=== PATIENT | female | born 1950 | race Caucasian/White ===

== ENCOUNTER 2018-11-06 14:40 | Emergency (ER) | payer OTHER ==
[~2018-11-06] VITALS: Ht 167.6 cm; Wt 72.1 kg
[~2018-11-06 14:40] MED LIST: ACYC400 PO; ACYC5TO15G TOP; ACYC800 PO; AMIT25 PO; AMLO10 PO; AMLO5 PO; ASPI81CH; ASPI81EC; Augmentin 875-1 EACH PO; Azor 10-20 MG1 EACH PO; CALCA500CH PO; CHOL10002; CHOL10002 PO; CONEST.3; CRUTCH2 USE; CYCL10 PO; FISH1000 PO; GABA100 PO; IBUP400 PO; MEDR2.5; MELO7.5 PO; METO25ER PO; NAPR375 PO; Neurontin300 MG PO; Norco 5-325 Ta1 EACH PO; OXYACE5T PO; OXYACE7.5T PO; PARO30 PO; Percocet 10-321 EACH PO; Percocet 5-3251 EACH PO; RXOXYACE PO; TRAM50; TRAM50 PO; VIT1CAPS12; Voltaren100 GM TP
[2018-11-06] MEDS ORDERED: Voltaren100 GM TOP (15:18)
[2018-11-06] MEDS ORDERED: IBUP800 PO (16:04)
== END 2018-11-06 15:37 | disposition home or self-care (01) ==
LOC: ER 14:40
DX: M25.471 Effusion, right ankle (principal); Z88.2 Allergy status to sulfonamides; Z88.1 Allergy status to other antibiotic agents; Z79.899 Other long term (current) drug therapy; I10 Essential (primary) hypertension; F41.9 Anxiety disorder, unspecified; Z87.891 Personal history of nicotine dependence
CPT/HCPCS: 29515; 73610; 99283-25; L1906

== ENCOUNTER 2019-01-12 18:43 | Emergency (ER) | payer OTHER ==
[~2019-01-12] VITALS: Ht 167.6 cm; Wt 68.0 kg
[~2019-01-12 18:43] MED LIST changes: +IBUP800 PO; +Voltaren100 GM TOP
[2019-01-12] MEDS ORDERED: AMIT50 PO (19:43)
[2019-01-12] MEDS ORDERED: PARO30 PO (19:43)
[2019-01-12] MEDS ORDERED: Norvasc10 MG PO (19:43)
== END 2019-01-12 20:30 | disposition home or self-care (01) ==
LOC: ER 18:43
DX: I10 Essential (primary) hypertension (principal); F41.9 Anxiety disorder, unspecified; F17.200 Nicotine dependence, unspecified, uncomplicated
CPT/HCPCS: 99283

== ENCOUNTER 2019-02-21 11:01 | Emergency (ER) | payer OTHER ==
[~2019-02-21] VITALS: Ht 167.6 cm; Wt 68.0 kg
[~2019-02-21 11:01] MED LIST changes: +AMIT50 PO; +Norvasc10 MG PO
[2019-02-21 12:52] LABS: BASOPHILS ABSOLUTE AUTO 0.05 K/mm3 (0.00-0.23); BASOPHILS PERCENT AUTO 1 % (0-2); EOSINOPHILS ABSOLUTE AUTO 0.11 K/mm3 (0.00-0.68); EOSINOPHILS PERCENT AUTO 1 % (0-6); Hematocrit 41.8 % (33.0-51.0); Hemoglobin 13.9 g/dL (11.5-16.0); IMMATURE GRAN ABSOLUTE AUTO 0.03 K/mm3 (0.00-0.10); IMMATURE GRAN PERCENT AUTO 0 % (0-1); LYMPHOCYTES ABSOLUTE AUTO 1.83 K/mm3 (0.84-5.20); LYMPHOCYTES PERCENT AUTO 17 % (21-46); MONOCYTES ABSOLUTE AUTO 0.83 K/mm3 (0.16-1.47); MONOCYTES PERCENT AUTO 8 % (4-13); Mean Corpuscular HGB 32.1 pg (26.0-34.0); Mean Corpuscular HGB Conc 33.3 g/dL (31.5-36.5); Mean Corpuscular Volume 97 fL (80-100); Mean Platelet Volume 9.5 fL (9.1-12.4); NEUTROPHILS ABSOLUTE AUTO 7.74 K/mm3 (1.96-9.15); NEUTROPHILS PERCENT AUTO 73 % (41-73); Platelet Count 257 K/mm3 (150-400); RDW Coefficient Variation 13.9 % (11.7-14.2); RDW Standard Deviation 49.5 fL (35.1-46.3); Red Blood Cell Count 4.33 M/mm3 (3.80-5.20); White Blood Cell Count 10.59 K/mm3 (4.00-11.30)
[2019-02-21 13:12] LABS: Alanine Aminotransfer (ALT/SGP 27 U/L (12-78); Albumin, Blood 3.9 g/dL (3.4-5.0); Albumin/Globulin Ratio 1.1 (0.8-1.8); Alk Phos 92 U/L (50-136); Anion Gap 6 mmol/L (6-16); Aspartate Aminotrans (AST/SGOT 30 U/L (12-37); Bilirubin, Total 1.1 mg/dL (0.1-1.0); Blood Urea Nitrogen 10 mg/dL (8-24); Bun/Creatinine Ratio 15.2 (12.0-20.0); CO2, Blood 29 mmol/L (21-32); Calcium, Blood 9.1 mg/dL (8.5-10.1); Chloride, Blood 100 mmol/L (98-108); Creatinine, Blood 0.66 mg/dL (0.40-1.00); Globulin, Blood 3.5 g/dL (2.2-4.0); Glomerular Filtration Rate >60 (60-); Glucose, Blood 94 mg/dL (70-99); Potassium, Blood 4.1 mmol/L (3.5-5.5); Sodium, Blood 135 mmol/L (136-145); Total Protein, Blood 7.4 g/dL (6.4-8.2)
[2019-02-21] MEDS ORDERED: ONDA4ODT MM (13:43)
== END 2019-02-21 16:25 | disposition home or self-care (01) ==
LOC: ER 11:01
PROVIDERS: Emergency Medicine
DX: S09.90XA Unspecified injury of head, initial encounter (principal); F41.9 Anxiety disorder, unspecified; I10 Essential (primary) hypertension; D69.3 Immune thrombocytopenic purpura; Z88.2 Allergy status to sulfonamides; Z88.8 Allergy status to other drugs, medicaments and biological substances; Z79.899 Other long term (current) drug therapy; Z59.0 Homelessness; W01.10XA Fall on same level from slipping, tripping and stumbling with subsequent striking against unspecified object, initial encounter
CPT/HCPCS: 36415; 70450; 80053; 85025; 99284-25

== ENCOUNTER 2020-06-02 21:35 | Inpatient (IN) | payer OTHER ==
[~2020-06-02] VITALS: Ht 167.6 cm; Wt 68.0 kg
[~2020-06-02 21:35] MED LIST changes: +ONDA4ODT MM
[2020-06-03 01:36] LABS: BASOPHILS PERCENT AUTO 1 % (0-2); EOSINOPHILS ABSOLUTE AUTO 0.25 K/mm3 (0.00-0.68); EOSINOPHILS PERCENT AUTO 2 % (0-6); Hematocrit 34.3 % (33.0-51.0); Hemoglobin 11.4 g/dL (11.5-16.0); IMMATURE GRAN ABSOLUTE AUTO 0.07 K/mm3 (0.00-0.10); IMMATURE GRAN PERCENT AUTO 1 % (0-1); LYMPHOCYTES ABSOLUTE AUTO 3.35 K/mm3 (0.84-5.20); LYMPHOCYTES PERCENT AUTO 26 % (21-46); MONOCYTES ABSOLUTE AUTO 1.02 K/mm3 (0.16-1.47); MONOCYTES PERCENT AUTO 8 % (4-13); Mean Corpuscular HGB 33.4 pg (26.0-34.0); Mean Corpuscular HGB Conc 33.2 g/dL (31.5-36.5); Mean Corpuscular Volume 101 fL (80-100); Mean Platelet Volume 9.7 fL (9.1-12.4); NEUTROPHILS ABSOLUTE AUTO 8.18 K/mm3 (1.96-9.15); NEUTROPHILS PERCENT AUTO 63 % (41-73); Platelet Count 292 K/mm3 (150-400); RDW Coefficient Variation 13.2 % (11.7-14.2); RDW Standard Deviation 49.5 fL (35.1-46.3); Red Blood Cell Count 3.41 M/mm3 (3.80-5.20); White Blood Cell Count 12.97 K/mm3 (4.00-11.30)
[2020-06-03 01:54] LABS: Alanine Aminotransfer (ALT/SGP 39 U/L (12-78); Albumin, Blood 3.4 g/dL (3.4-5.0); Albumin/Globulin Ratio 0.9 (0.8-1.8); Alk Phos 126 U/L (50-136); Anion Gap 10 mmol/L (6-16); Aspartate Aminotrans (AST/SGOT 40 U/L (12-37); Bilirubin, Total 0.2 mg/dL (0.1-1.0); Blood Urea Nitrogen 10 mg/dL (8-24); Bun/Creatinine Ratio 13.7 (12.0-20.0); CO2, Blood 22 mmol/L (21-32); Chloride, Blood 107 mmol/L (98-108); Creatinine, Blood 0.73 mg/dL (0.40-1.00); Globulin, Blood 3.6 g/dL (2.2-4.0); Glomerular Filtration Rate >60 (60-); Glucose, Blood 88 mg/dL (70-99); Potassium, Blood 4.4 mmol/L (3.5-5.5); Sodium, Blood 139 mmol/L (136-145)
--- NOTE | 2020-06-03 03:59 | NUR ---
PT DECLINED TO ANSWER QUESTIONS RELATING TO HER HEALTH HISTORY AT THIS TIME, STATING THAT SHE WAS TOO TIRED AND FELT THAT SHE WOULD NOT ANSWER CORRECTLY. PT LYING IN BED WITH CALL LIGHT IN REACH. EDUCATED ON USE OF CALL LIGHT, PT DEMONSTRATED ACCURATELY.
[2020-06-03 05:25] LABS: BASOPHILS ABSOLUTE AUTO 0.08 K/mm3 (0.00-0.23); BASOPHILS PERCENT AUTO 1 % (0-2); EOSINOPHILS PERCENT AUTO 3 % (0-6); Hematocrit 34.8 % (33.0-51.0); Hemoglobin 11.3 g/dL (11.5-16.0); IMMATURE GRAN ABSOLUTE AUTO 0.06 K/mm3 (0.00-0.10); IMMATURE GRAN PERCENT AUTO 1 % (0-1); LYMPHOCYTES ABSOLUTE AUTO 3.57 K/mm3 (0.84-5.20); LYMPHOCYTES PERCENT AUTO 30 % (21-46); MONOCYTES ABSOLUTE AUTO 1.31 K/mm3 (0.16-1.47); MONOCYTES PERCENT AUTO 11 % (4-13); Mean Corpuscular HGB 32.7 pg (26.0-34.0); Mean Corpuscular HGB Conc 32.5 g/dL (31.5-36.5); Mean Corpuscular Volume 101 fL (80-100); Mean Platelet Volume 10.1 fL (9.1-12.4); NEUTROPHILS ABSOLUTE AUTO 6.69 K/mm3 (1.96-9.15); NEUTROPHILS PERCENT AUTO 56 % (41-73); Platelet Count 292 K/mm3 (150-400); RDW Coefficient Variation 13.3 % (11.7-14.2); RDW Standard Deviation 50.2 fL (35.1-46.3); Red Blood Cell Count 3.46 M/mm3 (3.80-5.20); White Blood Cell Count 12.01 K/mm3 (4.00-11.30)
[2020-06-03 05:43] LABS: Alanine Aminotransfer (ALT/SGP 38 U/L (12-78); Albumin, Blood 3.3 g/dL (3.4-5.0); Albumin/Globulin Ratio 0.9 (0.8-1.8); Alk Phos 127 U/L (50-136); Anion Gap 9 mmol/L (6-16); Aspartate Aminotrans (AST/SGOT 40 U/L (12-37); Bilirubin, Total 0.5 mg/dL (0.1-1.0); Blood Urea Nitrogen 10 mg/dL (8-24); Bun/Creatinine Ratio 16.2 (12.0-20.0); CO2, Blood 22 mmol/L (21-32); Calcium, Blood 7.9 mg/dL (8.5-10.1); Chloride, Blood 106 mmol/L (98-108); Creatinine, Blood 0.62 mg/dL (0.40-1.00); Globulin, Blood 3.5 g/dL (2.2-4.0); Glomerular Filtration Rate >60 (60-); Glucose, Blood 82 mg/dL (70-99); Potassium, Blood 4.2 mmol/L (3.5-5.5); Sodium, Blood 137 mmol/L (136-145); Total Protein, Blood 6.8 g/dL (6.4-8.2)
--- NOTE | 2020-06-03 05:57 | NUR ---
SHIFT SUMMARY: OREN AROUSES EASILY AND RESPONDS APPROPRIATELY. SHE HAS RESTED INTERMITTENTLY SINCE ADMISSION. VSS, NO ACUTE EVENTS. SHE USES HER CALL LIGHT APPROPRIATELY. IV TO LEFT HAND PATENT, NS INFUSING. SHE DISPLAYS BEHAVIORS CONSISTENT WITH INEBRIATION. CAP REFILL TO LLE <3 SECONDS. SPLINT C/D&I. SHE IS A ONE PERSON ASSIST TO THE BEDSIDE COMMODE, REPOSITIONS HERSELF WELL IN BED. SHE IS LYING IN BED WITH HER CALL LIGHT IN REACH. WILL REPORT TO DAY SHIFT RN.
[2020-06-03 08:57] LABS: Source, Urine Catheter
[2020-06-03 09:03] LABS: Bilirubin, Urine Neg (Neg); Blood, Urine Neg (Neg); Glucose Qualitative, Urine Neg (Neg); Ketones, Urine Neg (Neg); Leukocyte Esterase, Urine 2+ (Neg); Nitrite, Urine Neg (Neg); Protein, Urine Neg (Neg); Specific Gravity, Urine 1.015 (1.003-1.022); Urobilinogen, Urine NORM (Normal)
[2020-06-03 09:14] LABS: Appearance, Urine Hazy (Clear); Color, Urine Yellow (P-Yellow)
[2020-06-03 09:16] LABS: Bacteria Rare /hpf; Red Blood Cells, Urine Not Seen /hpf (0-2); Squamous Epithelial Cells Rare /hpf (Few)
--- NOTE | 2020-06-03 09:43 | NUR ---
PT TO OR AT APROX 0940.
--- NOTE | 2020-06-03 10:29 | NUR ---
"DAY SURGERY RN | REPORT OFF TO PEDRO CODY PATIENT TALKING TO THIS RN IN FULL SENTENCES. PAIN IS TOLERABLE RIGHT NOW. AWAITING DR. KELLER FOR H/P AND FURTHER ORDERS."
--- NOTE | 2020-06-03 10:31 | NUR ---
"DAY SURGERY RN | REPORT TO SUDHEER WILLARD RN IS DIGITAL AD TRAFFICKER. REPORT OFF TO HER."
--- NOTE | 2020-06-03 11:25 | NUR ---
ASSUMED CARE FROM ERWIN SAVAGE RN AT 1035. PT AWAKE AND ORIENTED. LLE ELVATED, CIRCULATION INTACT, DRESSING CDI. PT STATES SHE IS AT A TOLERABLE LEVEL OF PAIN, NO GRIMACING NOTED. ABLE TO HAVE A COMPLETE CONVERSATION. WILL CONTINUE TO MONITOR.
--- NOTE | 2020-06-03 11:46 | NUR ---
DR KELLER AVAILABLE AND LOOKING AT PT CHART. IV TO RIGHT WRIST INTACT AND RUNS TO GRAVITY WITHOUT DIFFICULTY. PROVIDED ORAL CARE PER PT REQUEST.
--- NOTE | 2020-06-03 13:18 | NUR ---
06/03/20 1318 Dequan Pelaez PATIENT ARRIVED WITH CAMPOS IN PLACE.
--- NOTE | 2020-06-03 16:59 | NUR ---
SHIFT SUMMARY PT POD 0 L TIB/FIB REPAIR. SPLINT/JOSE WRAP C/D/I, CAP REFILL WNL. PAIN MANAGED PER EMAR. CIWA SCORE 3. PLAN IS PT/OT TOMORROW
--- NOTE | 2020-06-04 04:50 | NUR ---
SHIFT SUMMARY POD 1 LEFT TIB/FIB ORIF. PT A/OX4 WITH VSS. JOSE WRAP/SPLINT TO LLE CDI. LLE ELEVATED, REFUSED ICE THERAPY DESPITE EDU/ENC. CIWA REDUCED FROM 9 TO 3 W/ 1 MG IV ATIVAN AND 50MG LIBRIUM. PAIN MANAGED WITH PO MEDICATION. CAMPOS PATENT TO GRAVITY DRAIN, URINE YELLOW/CL. PT DENIES N/V. ABLE TO ASSIST WITH REPOSITIONING IN BED. SPO2 AT 93% ON 2L NC, CONT BIOX IN PLACE. PT APPEARS TO BE RESTING COMFORTABLY IN BED WITH CALL LIGHT IN REACH. PLAN TO WORK WITH THERAPY TODAY. WILL CONT TO MONITOR FOR CHANGES AND GIVE REPORT TO ONCOMING RN.
[2020-06-04 05:20] LABS: BASOPHILS ABSOLUTE AUTO 0.03 K/mm3 (0.00-0.23); BASOPHILS PERCENT AUTO 0 % (0-2); EOSINOPHILS PERCENT AUTO 0 % (0-6); Hematocrit 30.6 % (33.0-51.0); Hemoglobin 10.1 g/dL (11.5-16.0); IMMATURE GRAN PERCENT AUTO 1 % (0-1); LYMPHOCYTES ABSOLUTE AUTO 1.15 K/mm3 (0.84-5.20); LYMPHOCYTES PERCENT AUTO 9 % (21-46); MONOCYTES ABSOLUTE AUTO 1.46 K/mm3 (0.16-1.47); MONOCYTES PERCENT AUTO 11 % (4-13); Mean Corpuscular HGB 33.1 pg (26.0-34.0); Mean Corpuscular Volume 100 fL (80-100); Mean Platelet Volume 10.3 fL (9.1-12.4); NEUTROPHILS ABSOLUTE AUTO 10.57 K/mm3 (1.96-9.15); NEUTROPHILS PERCENT AUTO 79 % (41-73); Platelet Count 230 K/mm3 (150-400); RDW Coefficient Variation 12.9 % (11.7-14.2); RDW Standard Deviation 47.7 fL (35.1-46.3); Red Blood Cell Count 3.05 M/mm3 (3.80-5.20); White Blood Cell Count 13.31 K/mm3 (4.00-11.30)
[2020-06-04 05:50] LABS: Anion Gap 5 mmol/L (6-16); Blood Urea Nitrogen 9 mg/dL (8-24); Bun/Creatinine Ratio 15.2 (12.0-20.0); CO2, Blood 27 mmol/L (21-32); Calcium, Blood 7.5 mg/dL (8.5-10.1); Chloride, Blood 103 mmol/L (98-108); Creatinine, Blood 0.59 mg/dL (0.40-1.00); Glomerular Filtration Rate >60 (60-); Glucose, Blood 144 mg/dL (70-99); Magnesium, Blood 2.2 mg/dL (1.6-2.4); Potassium, Blood 4.1 mmol/L (3.5-5.5); Sodium, Blood 135 mmol/L (136-145)
--- NOTE | 2020-06-04 09:24 | NUR ---
RECIEVED REPORT FROM GLO VENTURA. ASSUMING CARE OF OREN AT THIS TIME.
--- NOTE | 2020-06-04 13:16 | NUR ---
Met pt in a chair watching Tv and is doing well prayed for her.
--- NOTE | 2020-06-04 16:10 | NUR ---
CARE ASSUMED OF PT AT THIS TIME. PT IS AWAKE AND ORIENTED BUT APPEARS DROWSY. 2L O2 VIA NC WAS PLACED FOR OXYGEN SATURATION OF 88%, O2 SATURATION IMPROVED TO 90%. PT COMPLAINS OF PAIN AND REQUESTED PAIN MEDICATION, WILL NOTIFY PT WHEN NEXT PAIN MEDICATION IS AVALIABLE.
--- NOTE | 2020-06-04 18:42 | NUR ---
SHIFT SUMMARY PT IS HAVING INCREASING CONFUSION AND AGGITATION THIS EVENING. PT'S CIWA SCORE IS APPROXIMATELY 5. SHE HAS BEEN GIVEN LIBRIUM TO HELP MANAGE WITHDRAWAL SYMPTOMS. VSS. WILL MONITOR UNTIL REPORT TO ONCOMING RN.
--- NOTE | 2020-06-05 06:12 | NUR ---
SHIFT SUMMARY POD 2 LEFT TIBIA ORIF, JOSE WRAP CDI WITH SPLINT IN PLACE. PT A/OX4 WITH VSS. HAS SPO2 OF 94% ON 2L NC. HAS CIWA OF 3, MEDICATED WITH ATIVAN AND LIBRIUM PER EMAR. PT APPEARS TO HAVE SLEPT T/O MOST OF SHIFT. NWB TO LLE, PT ABLE TO STAND/PIVOT WITH FWW/GB/1 ASSIST. PAIN MANAGED WITH PO MEDICATION AND 0.2MG DILAUDID X1 FOR BREAKTHROUGH. PT REF ICE THERAPY, LLE ELEVATED ON PILLOWS. SUE PO, DENIES N/V. REPORTS PASSING FLATUS. PLAN TO REMOVE CAMPOS CATH PRIOR TO SHIFT CHANGE. PT CURRENTLY RESTING IN BED WTIH CALL LIGHT IN REACH AND CONT BIOX IN PLACE. PLAN TO WORK WITH SNF TODAY AND POSSIBLE D/C. WILL CON TO MONITOR AND GIVE REPORT TO ONCOMING RN.
--- NOTE | 2020-06-05 10:17 | NUR ---
PAIN MEDICATED PER ORDERS FOR PAIN. PT REFUSES USING ICE, STATING "IT HURTS ME"
--- NOTE | 2020-06-05 11:16 | NUR ---
CONFUSION PT BECAME ANXIOUS WHILE WORKING W/PT. MEDICATED PER ORDERS FOR ANXIETY 2/1MG IV LORAZEPAM. BECAME DISORIENTED AND DROWSY. UNABLE TO WORK W/OT OR USE PHONE. TAB ALARM PLACED PT IS SITTING UP IN RECLINER.
--- NOTE | 2020-06-05 16:59 | NUR ---
SUMMARY PT'S CIWA THIS EVENING 8. MEDICATED PER ORDERS W/LIBRIUM. EARLIER IN SHIFT, MEDICATED PER ORDERS W/ATIVAN. PT SEEMED TO BECOME MORE CONFUSED. HAS CONTINUING DIFFICULTY W/USING PHONE. ASSISTED PT TO CALL FRIEND TO CHECK ON DOG. MEDICATED PER ORDERS T/O SHIFT FOR PAIN. PT REFUSING ICE TO LLE. STATES IT CAUSES PAIN. PT IS MAX TWO PERSON ASSIST TO BSC. UNABLE TO MAINTAIN NWB ORDERS TO LLE. PT REPORTED HAS TO VOID THIS EVENING BUT DID NOT ONCE UP TO BSC. BLADDER SCAN SHOWED 180 ML. NOW RESTING IN BED. BED ALARM ON.
[2020-06-06 04:34] LABS: BASOPHILS ABSOLUTE AUTO 0.04 K/mm3 (0.00-0.23); BASOPHILS PERCENT AUTO 1 % (0-2); EOSINOPHILS ABSOLUTE AUTO 0.38 K/mm3 (0.00-0.68); EOSINOPHILS PERCENT AUTO 5 % (0-6); Hematocrit 30.2 % (33.0-51.0); Hemoglobin 9.6 g/dL (11.5-16.0); IMMATURE GRAN ABSOLUTE AUTO 0.06 K/mm3 (0.00-0.10); IMMATURE GRAN PERCENT AUTO 1 % (0-1); LYMPHOCYTES ABSOLUTE AUTO 2.51 K/mm3 (0.84-5.20); LYMPHOCYTES PERCENT AUTO 34 % (21-46); MONOCYTES ABSOLUTE AUTO 0.76 K/mm3 (0.16-1.47); MONOCYTES PERCENT AUTO 10 % (4-13); Mean Corpuscular HGB 32.5 pg (26.0-34.0); Mean Corpuscular HGB Conc 31.8 g/dL (31.5-36.5); Mean Corpuscular Volume 102 fL (80-100); Mean Platelet Volume 10.2 fL (9.1-12.4); NEUTROPHILS ABSOLUTE AUTO 3.72 K/mm3 (1.96-9.15); NEUTROPHILS PERCENT AUTO 50 % (41-73); Platelet Count 220 K/mm3 (150-400); RDW Standard Deviation 48.2 fL (35.1-46.3); Red Blood Cell Count 2.95 M/mm3 (3.80-5.20); White Blood Cell Count 7.47 K/mm3 (4.00-11.30)
[2020-06-06 04:59] LABS: Anion Gap 5 mmol/L (6-16); Blood Urea Nitrogen 8 mg/dL (8-24); Bun/Creatinine Ratio 12.3 (12.0-20.0); CO2, Blood 29 mmol/L (21-32); Calcium, Blood 8.5 mg/dL (8.5-10.1); Chloride, Blood 106 mmol/L (98-108); Creatinine, Blood 0.65 mg/dL (0.40-1.00); Glomerular Filtration Rate >60 (60-); Glucose, Blood 94 mg/dL (70-99); Potassium, Blood 3.6 mmol/L (3.5-5.5); Sodium, Blood 140 mmol/L (136-145)
--- NOTE | 2020-06-06 05:25 | NUR ---
SHIFT SUMMARY ORIF L TIBIA, POD2, A/O X4, VSS, PAIN WELL CONTROLLED PER EMAR. PT REQUIRES CONTINUED REDIRECTION TO NOT PUT WEIGHT ON LEFT LEG, CONTINUED ENCOURAGEMENT TO SUPPORT WEIGHT WHILE STAND&PIVOT TO BEDSIDE COMMODE, WILL CONTINUE TO REINFORCE EDUCATION ON WEIGHT BEARING STATUS. 1 VOID AT BEGINNING OF SHIFT, WILL BLADDER SCAN AND TREAT PER PROTOCOL/ORDERS. CALL LIGHT IN REACH, WILL CONTINUE TO MONITOR AND REPORT TO ONCOMING DAY RN.
--- NOTE | 2020-06-06 15:50 | NUR ---
OT WORKING W/PT.
--- NOTE | 2020-06-06 17:05 | NUR ---
PT DC'D TO SNF. CALLED REPORT TO NORM AT . PT LEFT UNIT IN WC W/POSSESSIONS IN HAND. ESCORT REC'D DC PACKET. DC'D IV PRIOR TO DC, CATHETER INTACT.
== END 2020-06-06 16:50 | DRG 493 ==
LOC: ER 21:35 → ERHOLD 21:36 → SURS 21:36 → ERHOLD 21:36 → SURS 06-03 01:59
PROVIDERS: Family Medicine; Hospitalist; Orthopaedic Surgery; Physician Assistant; ADMIT Internal Medicine
PROC: 0QSH04Z Reposition Left Tibia with Internal Fixation Device, Open Approach (ICD-10-PCS; principal; 2020-06-03 10:15)
DX: S82.202A Unspecified fracture of shaft of left tibia, initial encounter for closed fracture (principal); F10.239 Alcohol dependence with withdrawal, unspecified; D69.6 Thrombocytopenia, unspecified; I10 Essential (primary) hypertension; S82.402A Unspecified fracture of shaft of left fibula, initial encounter for closed fracture; F41.8 Other specified anxiety disorders; W19.XXXA Unspecified fall, initial encounter; F17.210 Nicotine dependence, cigarettes, uncomplicated; Z91.19 Patient's noncompliance with other medical treatment and regimen
CPT/HCPCS: 29505; 36415; 73590; 73700; 76377; 80048; 80053; 81001; 83735; 85025; 87086; 93005; 93010; 94762; 96374-59; 96375-59; 96376-59; 97110; 97116; 97161; 97166; 97535; 99284-25; A9270; A9270-GY; C1713; J0690; J1100; J1170; J1650; J2060; J2250; J2370; J2405; J2704; J3010; J7030; J7120; U0002

== ENCOUNTER 2020-10-10 19:09 | Emergency (ER) | payer OTHER ==
[~2020-10-10] VITALS: Ht 162.6 cm; Wt 77.1 kg
[2020-10-10 19:31] LABS: BASOPHILS ABSOLUTE AUTO 0.09 K/mm3 (0.00-0.23); BASOPHILS PERCENT AUTO 1 % (0-2); EOSINOPHILS ABSOLUTE AUTO 0.38 K/mm3 (0.00-0.68); EOSINOPHILS PERCENT AUTO 4 % (0-6); Hematocrit 37.8 % (33.0-51.0); Hemoglobin 12.4 g/dL (11.5-16.0); IMMATURE GRAN ABSOLUTE AUTO 0.08 K/mm3 (0.00-0.10); IMMATURE GRAN PERCENT AUTO 1 % (0-1); LYMPHOCYTES ABSOLUTE AUTO 3.63 K/mm3 (0.84-5.20); LYMPHOCYTES PERCENT AUTO 41 % (21-46); MONOCYTES ABSOLUTE AUTO 0.53 K/mm3 (0.16-1.47); MONOCYTES PERCENT AUTO 6 % (4-13); Mean Corpuscular HGB 30.4 pg (26.0-34.0); Mean Corpuscular HGB Conc 32.8 g/dL (31.5-36.5); Mean Corpuscular Volume 93 fL (80-100); Mean Platelet Volume 9.4 fL (9.1-12.4); NEUTROPHILS ABSOLUTE AUTO 4.17 K/mm3 (1.96-9.15); NEUTROPHILS PERCENT AUTO 47 % (41-73); Platelet Count 392 K/mm3 (150-400); RDW Coefficient Variation 15.4 % (11.7-14.2); RDW Standard Deviation 52.3 fL (35.1-46.3); Red Blood Cell Count 4.08 M/mm3 (3.80-5.20); White Blood Cell Count 8.88 K/mm3 (4.00-11.30)
[2020-10-10 19:54] LABS: Alanine Aminotransfer (ALT/SGP 38 U/L (12-78); Albumin, Blood 3.5 g/dL (3.4-5.0); Alk Phos 119 U/L (50-136); Anion Gap 10 mmol/L (6-16); Aspartate Aminotrans (AST/SGOT 36 U/L (12-37); Bilirubin, Total 0.4 mg/dL (0.1-1.0); Blood Urea Nitrogen 8 mg/dL (8-24); Bun/Creatinine Ratio 12.5 (12.0-20.0); CO2, Blood 23 mmol/L (21-32); Chloride, Blood 105 mmol/L (98-108); Creatinine, Blood 0.64 mg/dL (0.40-1.00); Ethanol (Alcohol), Blood, Med 279 mg/dL; Globulin, Blood 3.5 g/dL (2.2-4.0); Glomerular Filtration Rate >60 (60-); Glucose, Blood 85 mg/dL (70-99); Potassium, Blood 4.5 mmol/L (3.5-5.5); Sodium, Blood 138 mmol/L (136-145)
[2020-10-10 20:20] LABS: Source, Urine Catheter
[2020-10-10 20:22] LABS: Appearance, Urine Clear (Clear); Bilirubin, Urine Neg (Neg); Blood, Urine 1+ (Neg); Color, Urine Yellow (P-Yellow); Glucose Qualitative, Urine Neg (Neg); Ketones, Urine Neg (Neg); Leukocyte Esterase, Urine Neg (Neg); Nitrite, Urine Neg (Neg); Protein, Urine Neg (Neg); Urobilinogen, Urine NORM (Normal)
[2020-10-10 20:30] LABS: Bacteria Mod /hpf; Red Blood Cells, Urine 0-2 /hpf (0-2); Squamous Epithelial Cells Few /hpf (Few); White Blood Cells, Urine Rare /hpf (0-5)
[2020-10-10 20:42] LABS: U Amphetamine Screen Not Detected; U Barbituate Screen Not Detected; U Benzodiazapine Screen Not Detected; U Buprenorphine Screen Not Detected; U Cannabinoids Screen Not Detected; U Cocaine Screen Not Detected; U Methadone Screen Not Detected; U Methamphetamine Screen Not Detected; U Opiates Screen Not Detected; U Oxycodone Screen Not Detected; U Phencyclidine Screen Not Detected; U Propoxyphene Screen Not Detected
[2020-10-10] MEDS ORDERED: THERA-D2000 UNIT PO (21:57)
[2020-10-10] MEDS ORDERED: CALCIUM 600 +1 EA11 PO (21:58)
[2020-10-10] MEDS ORDERED: ACYC200 PO (21:59)
== END 2020-10-10 21:20 | disposition short-term general hospital (02) ==
LOC: ER 19:09
PROVIDERS: Student in an Organized Health Care Education/Training Program
DX: S06.5X0A Traumatic subdural hemorrhage without loss of consciousness, initial encounter (principal); R57.8 Other shock; I10 Essential (primary) hypertension; Z88.2 Allergy status to sulfonamides; Z88.1 Allergy status to other antibiotic agents; Z88.5 Allergy status to narcotic agent; Z79.899 Other long term (current) drug therapy; W10.9XXA Fall (on) (from) unspecified stairs and steps, initial encounter
CPT/HCPCS: 36556; 51702; 70450; 71260; 72125; 74177; 80053; 81001; 85025; 87077; 87086; 87186; 90471; 90714; 93005; 93010; 96365-59; 96375-59; 99285-25; C1751; G0480; J1100; J3010; J7030; J7060; Q9967